=== PATIENT | female | born 1970 | race African-American/Black ===

== ENCOUNTER 2018-01-15 12:14 | Emergency (ER) | payer MEDICARE, OTHER ==
[~2018-01-15] VITALS: Ht 182.9 cm; Wt 82.0 kg
[2018-01-15] MEDS ORDERED: KETOROLAC 30MG/ML VIAL IV STA (13:05)
[2018-01-15 13:22] LABS: HEMATOCRIT. 40.4 % (36.0-48.0); HEMOGLOBIN. 13.5 g/dL (12.0-16.0); MEAN CORPUSCULAR HEMOGLOBIN 32.8 pg (28.0-32.0); MEAN CORPUSCULAR VOLUME 98.1 fL (81.0-99.0); MEAN PLATELET VOLUME 7.3 fl (7.4-10.4); PLATELET 306 x1000/uL (130-400); RED BLOOD CELL COUNT 4.12 mill/uL (4.2-5.4); RED CELL DISTRIBUTION WIDTH 13.6 % (11.6-14.6)
[2018-01-15 13:27] LABS: CHLORIDE 111 mEq/L (98-107)
[2018-01-15 13:32] LABS: PROTHROMBIN TIME 10.5 sec (9.4-11.6)
[2018-01-15 13:39] LABS: HCG SCREEN NEGATIVE
[2018-01-15 13:58] LABS: PLATELET ESTIMATE NORMAL
[2018-01-15 14:46] VITALS: BP 124/79
== END 2018-01-15 14:48 | disposition home or self-care (01) ==
LOC: ER 12:14
DX: R07.89 Other chest pain (principal); M54.12 Radiculopathy, cervical region; J45.909 Unspecified asthma, uncomplicated; F20.9 Schizophrenia, unspecified; F43.10 Post-traumatic stress disorder, unspecified; F17.200 Nicotine dependence, unspecified, uncomplicated; F12.10 Cannabis abuse, uncomplicated
CPT/HCPCS: 36415; 71045; 80053; 83880; 84484; 84703; 85025; 85610; 93005; 96374; 99285; J1885